=== PATIENT | female | born 1960 | race Two or more races ===

== ENCOUNTER 2021-02-13 13:23 | Outpatient (CLI) | payer OTHER | END 2021-02-13 13:46 | disposition home or self-care (01) | LOC: OFIC 805 13:23 | PROVIDERS: ATTEND Otolaryngology Otology & Neurotology | DX: J34.89 Other specified disorders of nose and nasal sinuses (principal); D16.5 Benign neoplasm of lower jaw bone; R09.81 Nasal congestion ==

== ENCOUNTER 2021-03-15 08:27 | Outpatient (CLI) | payer OTHER | END 2021-03-15 09:13 | disposition home or self-care (01) | LOC: OFIC 805 08:27 | PROVIDERS: ATTEND Otolaryngology Otology & Neurotology | DX: K09.1 Developmental (nonodontogenic) cysts of oral region (principal); R09.81 Nasal congestion; J34.89 Other specified disorders of nose and nasal sinuses ==